=== PATIENT | male | born 1945 | race Caucasian/White ===

== ENCOUNTER 2017-05-06 07:29 | Emergency (ER) | payer MEDICARE, BC ==
[~2017-05-06] VITALS: Ht 167.6 cm; Wt 111.1 kg
[~2017-05-06 07:29] MED LIST: ALBU90OI INH; ASPI81EC PO; DIPATR PO; FISH1000 PO; FURO40 PO; HYDMOR2 PO; INSULANI SC; INSULANPEN SC; LISI20 PO; METF500 PO; POTCHL20ER PO; PROCODE120 PO; PROM25 PO; SIMV40 PO; SITA100T2 PO; TAMS.4ER PO; VERA120ERB PO
[2017-05-06] MEDS ORDERED: Hydrochlorothia25 MG PO (07:53)
[2017-05-06] MEDS ORDERED: Novolog100 UNIT/1 (07:54)
[2017-05-06 08:50] LABS: Source, Urine Clean Catch
[2017-05-06 09:01] LABS: BASOPHILS ABSOLUTE AUTO 0.01 K/mm3 (0.00-0.23); BASOPHILS PERCENT AUTO 0 % (0-2); EOSINOPHILS ABSOLUTE AUTO 0.17 K/mm3 (0.00-0.68); EOSINOPHILS PERCENT AUTO 3 % (0-6); Hematocrit 38.5 % (37.0-53.0); IMMATURE GRAN ABSOLUTE AUTO 0.01 K/mm3 (0.00-0.10); IMMATURE GRAN PERCENT AUTO 0 % (0-1); LYMPHOCYTES ABSOLUTE AUTO 1.26 K/mm3 (0.84-5.20); LYMPHOCYTES PERCENT AUTO 24 % (21-46); MONOCYTES ABSOLUTE AUTO 0.57 K/mm3 (0.16-1.47); MONOCYTES PERCENT AUTO 11 % (4-13); Mean Corpuscular HGB 29.6 pg (26.0-34.0); Mean Corpuscular HGB Conc 33.8 g/dL (31.5-36.5); Mean Corpuscular Volume 88 fL (80-100); Mean Platelet Volume 9.1 fL (9.1-12.4); NEUTROPHILS ABSOLUTE AUTO 3.35 K/mm3 (1.96-9.15); NEUTROPHILS PERCENT AUTO 62 % (41-73); Platelet Count 126 K/mm3 (150-400); RDW Coefficient Variation 13.4 % (11.7-14.2); RDW Standard Deviation 43.7 fL (35.1-46.3); Red Blood Cell Count 4.39 M/mm3 (4.30-5.90); White Blood Cell Count 5.37 K/mm3 (4.00-11.30)
[2017-05-06 09:15] LABS: Bun/Creatinine Ratio 12.1 (12.0-20.0); Calcium, Blood 8.9 mg/dL (8.5-10.1); Creatinine, Blood 1.4 mg/dL (0.60-1.20); Potassium, Blood 3.4 mmol/L (3.5-5.5)
[2017-05-06 09:22] LABS: Bilirubin, Urine Neg (Neg); Blood, Urine 2+ (Neg); Glucose Qualitative, Urine Neg (Neg); Ketones, Urine Neg (Neg); Leukocyte Esterase, Urine Neg (Neg); Nitrite, Urine Neg (Neg); Protein, Urine 3+ (Neg); Urobilinogen, Urine NORM (Normal)
[2017-05-06 09:25] LABS: Appearance, Urine Clear (Clear); Color, Urine Yellow (P-Yellow)
[2017-05-06 09:26] LABS: Bacteria Not Seen /hpf; Red Blood Cells, Urine Not Seen /hpf (0-2); Squamous Epithelial Cells Not Seen /hpf (Few); White Blood Cells, Urine Not Seen /hpf (0-5)
[2017-05-06] MEDS ORDERED: Roxicodone5 MG PO (10:53)
[2017-05-07] MEDS ORDERED: Vitamin C100 M1 PO (12:07)
== END 2017-05-06 11:50 | disposition home or self-care (01) ==
LOC: ER 07:29
PROVIDERS: Emergency Medicine
DX: N13.2 Hydronephrosis with renal and ureteral calculous obstruction (principal); I10 Essential (primary) hypertension; E11.9 Type 2 diabetes mellitus without complications; Z87.891 Personal history of nicotine dependence; Z90.49 Acquired absence of other specified parts of digestive tract; Z88.5 Allergy status to narcotic agent; Z88.1 Allergy status to other antibiotic agents; Z79.899 Other long term (current) drug therapy; Z79.82 Long term (current) use of aspirin; Z79.84 Long term (current) use of oral hypoglycemic drugs; Z79.4 Long term (current) use of insulin
CPT/HCPCS: 36415; 74176; 80048; 81001; 85025; 93005; 93010; 96374; 96375; 99284; J1170; J1885; J2405; J7030

== ENCOUNTER 2017-05-07 11:18 | Day surgery (SDC) | payer MEDICARE, BC ==
[~2017-05-07] VITALS: Ht 167.6 cm; Wt 111.2 kg
[~2017-05-07 11:18] MED LIST changes: +Hydrochlorothia25 MG PO; +Novolog100 UNIT/1; +Roxicodone5 MG PO
[2017-05-07] MEDS ORDERED: Vitamin C100 M1 PO (12:07)
== END 2017-05-07 14:12 | disposition home or self-care (01) ==
LOC: ORSCSDS 11:18
PROVIDERS: Urology
PROC: 0TF78ZZ Fragmentation in Left Ureter, Via Natural or Artificial Opening Endoscopic (ICD-10-PCS; principal; 2017-05-07 13:00)
PROC: 0T778DZ Dilation of Left Ureter with Intraluminal Device, Via Natural or Artificial Opening Endoscopic (ICD-10-PCS; principal; 2017-05-07 13:00)
DX: N20.1 Calculus of ureter (principal); I10 Essential (primary) hypertension; G47.33 Obstructive sleep apnea (adult) (pediatric); Z87.891 Personal history of nicotine dependence; E11.9 Type 2 diabetes mellitus without complications; E66.01 Morbid (severe) obesity due to excess calories; Z68.41 Body mass index [BMI] 40.0-44.9, adult; Z79.899 Other long term (current) drug therapy; Z79.4 Long term (current) use of insulin
CPT/HCPCS: 82360; 82947; C1769; C1894; C2617; J0744; J1100; J2405; J2710; J3010; J7120

== ENCOUNTER → 2017-11-02 | Outpatient (CLI) | payer MEDICARE, BC ==
[~2017-11-02] MED LIST changes: +Vitamin C100 M1 PO
== END | disposition home or self-care (01) ==
LOC: PLD 14:21 → LAB SHORT 14:21
DX: D04.61 Carcinoma in situ of skin of right upper limb, including shoulder (principal)
CPT/HCPCS: 88305

== ENCOUNTER 2019-01-31 22:42 | Emergency (ER) | payer OTHER, BC ==
[~2019-01-31] VITALS: Ht 167.6 cm; Wt 113.4 kg
[2019-01-31] MEDS ORDERED: LISI20 PO (23:49)
[2019-01-31 23:53] LABS: BASOPHILS ABSOLUTE AUTO 0.05 K/mm3 (0.00-0.23); BASOPHILS PERCENT AUTO 1 % (0-2); EOSINOPHILS PERCENT AUTO 4 % (0-6); Hematocrit 40.4 % (37.0-53.0); Hemoglobin 12.8 g/dL (13.5-17.5); IMMATURE GRAN ABSOLUTE AUTO 0.03 K/mm3 (0.00-0.10); IMMATURE GRAN PERCENT AUTO 0 % (0-1); LYMPHOCYTES ABSOLUTE AUTO 2.15 K/mm3 (0.84-5.20); LYMPHOCYTES PERCENT AUTO 25 % (21-46); MONOCYTES ABSOLUTE AUTO 0.85 K/mm3 (0.16-1.47); MONOCYTES PERCENT AUTO 10 % (4-13); Mean Corpuscular HGB 29.8 pg (26.0-34.0); Mean Corpuscular HGB Conc 31.7 g/dL (31.5-36.5); Mean Corpuscular Volume 94 fL (80-100); Mean Platelet Volume 9.4 fL (9.1-12.4); NEUTROPHILS ABSOLUTE AUTO 5.11 K/mm3 (1.96-9.15); NEUTROPHILS PERCENT AUTO 60 % (41-73); Platelet Count 204 K/mm3 (150-400); RDW Coefficient Variation 14.2 % (11.7-14.2); RDW Standard Deviation 48.9 fL (35.1-46.3); Red Blood Cell Count 4.29 M/mm3 (4.30-5.90); White Blood Cell Count 8.49 K/mm3 (4.00-11.30)
[2019-02-01 00:10] LABS: Alanine Aminotransfer (ALT/SGP 39 U/L (12-78); Albumin, Blood 3.4 g/dL (3.4-5.0); Albumin/Globulin Ratio 0.8 (0.8-1.8); Alk Phos 58 U/L (50-136); Anion Gap 7 mmol/L (6-16); Aspartate Aminotrans (AST/SGOT 28 U/L (12-37); Bilirubin, Total 0.4 mg/dL (0.1-1.0); Blood Urea Nitrogen 24 mg/dL (8-24); Bun/Creatinine Ratio 20.5 (12.0-20.0); CO2, Blood 29 mmol/L (21-32); Calcium, Blood 9.4 mg/dL (8.5-10.1); Chloride, Blood 103 mmol/L (98-108); Creatinine, Blood 1.17 mg/dL (0.60-1.20); Globulin, Blood 4.5 g/dL (2.2-4.0); Glomerular Filtration Rate >60 (60-); Glucose, Blood 99 mg/dL (70-99); Potassium, Blood 3.7 mmol/L (3.5-5.5); Sodium, Blood 139 mmol/L (136-145); Total Protein, Blood 7.9 g/dL (6.4-8.2)
== END 2019-02-01 01:46 | disposition home or self-care (01) ==
LOC: ER 22:42
PROVIDERS: Physician Assistant
DX: E11.649 Type 2 diabetes mellitus with hypoglycemia without coma (principal); Z88.0 Allergy status to penicillin; Z88.5 Allergy status to narcotic agent; Z79.899 Other long term (current) drug therapy; Z79.82 Long term (current) use of aspirin; Z79.4 Long term (current) use of insulin; I10 Essential (primary) hypertension; E11.9 Type 2 diabetes mellitus without complications; Z87.891 Personal history of nicotine dependence
CPT/HCPCS: 36415; 80053; 82947; 85025; 99283

== ENCOUNTER 2019-05-29 09:57 | Emergency (ER) | payer OTHER, BC ==
[~2019-05-29] VITALS: Ht 167.6 cm; Wt 113.4 kg
[2019-05-29] MEDS ORDERED: Percocet 5-3251 EACH PO (11:43)
[2019-05-29] MEDS ORDERED: Baclofen10 MG PO (11:43)
== END 2019-05-29 12:12 | disposition home or self-care (01) ==
LOC: ER 09:57
DX: M54.41 Lumbago with sciatica, right side (principal); M47.816 Spondylosis without myelopathy or radiculopathy, lumbar region; E11.9 Type 2 diabetes mellitus without complications; I10 Essential (primary) hypertension; E78.5 Hyperlipidemia, unspecified; Z88.0 Allergy status to penicillin; Z88.5 Allergy status to narcotic agent; Z79.899 Other long term (current) drug therapy; Z79.82 Long term (current) use of aspirin; Z79.4 Long term (current) use of insulin; Z87.442 Personal history of urinary calculi; Z87.891 Personal history of nicotine dependence
CPT/HCPCS: 72100; 96372; 99283-25; J1170

== ENCOUNTER → 2019-09-13 | Outpatient (CLI) | payer OTHER, BC ==
[~2019-09-13] MED LIST changes: +Baclofen10 MG PO; +Percocet 5-3251 EACH PO
== END | disposition home or self-care (01) ==
LOC: LAB SHORT 10:00 → LAB 10:00
DX: N20.2 Calculus of kidney with calculus of ureter (principal)
CPT/HCPCS: 81050

== ENCOUNTER → 2020-06-12 | Outpatient (CLI) | payer MEDICARE, BC | END | disposition home or self-care (01) | LOC: PLD 11:34 → LAB SHORT 11:34 | DX: C44.619 Basal cell carcinoma of skin of left upper limb, including shoulder (principal); C44.612 Basal cell carcinoma of skin of right upper limb, including shoulder; D04.4 Carcinoma in situ of skin of scalp and neck | CPT/HCPCS: 88305 ==

== ENCOUNTER → 2020-07-12 | Outpatient (CLI) | payer MEDICARE, BC | LOC: PLD 15:50 → LAB SHORT 15:50 | DX: C44.619 Basal cell carcinoma of skin of left upper limb, including shoulder (principal); Z88.1 Allergy status to other antibiotic agents; Z88.5 Allergy status to narcotic agent | CPT/HCPCS: 88305 ==

== ENCOUNTER 2020-12-30 12:44 | Emergency (ER) | payer MEDICARE, BC ==
[~2020-12-30] VITALS: Ht 167.6 cm; Wt 111.6 kg
[2020-12-30 13:37] LABS: Source, Urine Clean Catch
[2020-12-30 13:42] LABS: BASOPHILS ABSOLUTE AUTO 0.07 K/mm3 (0.00-0.23); BASOPHILS PERCENT AUTO 1 % (0-2); EOSINOPHILS ABSOLUTE AUTO 0.26 K/mm3 (0.00-0.68); EOSINOPHILS PERCENT AUTO 2 % (0-6); Hematocrit 39.5 % (37.0-53.0); Hemoglobin 12.9 g/dL (13.5-17.5); IMMATURE GRAN ABSOLUTE AUTO 0.05 K/mm3 (0.00-0.10); IMMATURE GRAN PERCENT AUTO 0 % (0-1); LYMPHOCYTES ABSOLUTE AUTO 1.39 K/mm3 (0.84-5.20); LYMPHOCYTES PERCENT AUTO 12 % (21-46); MONOCYTES ABSOLUTE AUTO 0.86 K/mm3 (0.16-1.47); MONOCYTES PERCENT AUTO 7 % (4-13); Mean Corpuscular HGB 29.9 pg (26.0-34.0); Mean Corpuscular HGB Conc 32.7 g/dL (31.5-36.5); Mean Corpuscular Volume 91 fL (80-100); Mean Platelet Volume 9.3 fL (9.1-12.4); NEUTROPHILS ABSOLUTE AUTO 9.21 K/mm3 (1.96-9.15); NEUTROPHILS PERCENT AUTO 78 % (41-73); Platelet Count 184 K/mm3 (150-400); RDW Coefficient Variation 13.4 % (11.7-14.2); RDW Standard Deviation 45.4 fL (35.1-46.3); Red Blood Cell Count 4.32 M/mm3 (4.30-5.90); White Blood Cell Count 11.84 K/mm3 (4.00-11.30)
[2020-12-30 13:57] LABS: Appearance, Urine Clear (Clear); Bilirubin, Urine Neg (Neg); Blood, Urine Neg (Neg); Color, Urine Yellow (P-Yellow); Glucose Qualitative, Urine Neg (Neg); Ketones, Urine Neg (Neg); Leukocyte Esterase, Urine Neg (Neg); Nitrite, Urine Neg (Neg); Protein, Urine 2+ (Neg); Urobilinogen, Urine NORM (Normal)
[2020-12-30 14:06] LABS: Albumin, Blood 3.7 g/dL (3.4-5.0); Albumin/Globulin Ratio 0.8 (0.8-1.8); Bilirubin, Total 0.6 mg/dL (0.1-1.0); Bun/Creatinine Ratio 14.9 (12.0-20.0); Calcium, Blood 9.8 mg/dL (8.5-10.1); Creatinine, Blood 1.61 mg/dL (0.60-1.20); Globulin, Blood 4.9 g/dL (2.2-4.0); Potassium, Blood 4.3 mmol/L (3.5-5.5); Total Protein, Blood 8.6 g/dL (6.4-8.2)
[2020-12-30 14:18] LABS: Bacteria Rare /hpf; Red Blood Cells, Urine Rare /hpf (0-2); Squamous Epithelial Cells Few /hpf (Few); White Blood Cells, Urine 0-2 /hpf (0-5)
[2020-12-30] MEDS ORDERED: OXAYDO5 M1 PO (16:05)
== END 2020-12-30 16:19 | disposition home or self-care (01) ==
LOC: ER 12:44
PROVIDERS: Emergency Medicine
DX: N13.2 Hydronephrosis with renal and ureteral calculous obstruction (principal); E11.9 Type 2 diabetes mellitus without complications; I10 Essential (primary) hypertension; Z87.891 Personal history of nicotine dependence; Z88.0 Allergy status to penicillin; Z88.5 Allergy status to narcotic agent; Z79.4 Long term (current) use of insulin; Z79.82 Long term (current) use of aspirin; Z79.899 Other long term (current) drug therapy
CPT/HCPCS: 36415; 74176; 80053; 81001; 85025; 99284-25; A9270

== ENCOUNTER 2021-04-30 12:10 | Emergency (ER) | payer MEDICARE, BC ==
[~2021-04-30] VITALS: Ht 167.6 cm; Wt 111.6 kg
[~2021-04-30 12:10] MED LIST changes: +OXAYDO5 M1 PO
[2021-04-30] MEDS ORDERED: METPRE4DP PO (16:01)
[2021-04-30] MEDS ORDERED: OXYC5 PO (16:01)
== END 2021-04-30 16:45 | disposition home or self-care (01) ==
LOC: ER 12:10
DX: M10.9 Gout, unspecified (principal); M79.671 Pain in right foot; Z88.0 Allergy status to penicillin; Z88.5 Allergy status to narcotic agent; Z79.899 Other long term (current) drug therapy; Z79.82 Long term (current) use of aspirin; Z79.84 Long term (current) use of oral hypoglycemic drugs; Z79.4 Long term (current) use of insulin; Z79.891 Long term (current) use of opiate analgesic; E11.9 Type 2 diabetes mellitus without complications; I10 Essential (primary) hypertension; E78.5 Hyperlipidemia, unspecified; Z87.891 Personal history of nicotine dependence
CPT/HCPCS: 93971; 99284-25; J7512

== ENCOUNTER 2024-01-09 10:38 | Emergency (ER) | payer OTHER ==
[~2024-01-09] VITALS: Ht 167.6 cm; Wt 117.9 kg
[~2024-01-09 10:38] MED LIST changes: +METPRE4DP PO; +OXYC5 PO
[2024-01-09 11:18] VITALS: BP 137/81
[2024-01-09] MEDS ORDERED: Gabapentin 100 MG Cap PO ONE (11:45)
[2024-01-09] MEDS ORDERED: Ketorolac Tromethamine 15mg Vial IM ONE (11:45)
[2024-01-09] MEDS ORDERED: Lidocaine 4% 1 Patch TOP ONE (11:45)
[2024-01-09] MEDS ORDERED: LIDO700A20 TOP (11:50)
[2024-01-09] MEDS ORDERED: ACET500 PO (11:50)
== END 2024-01-09 12:05 | disposition home or self-care (01) ==
LOC: ER 10:38
DX: M54.42 Lumbago with sciatica, left side (principal); Z88.0 Allergy status to penicillin; Z88.5 Allergy status to narcotic agent; Z79.899 Other long term (current) drug therapy; Z79.82 Long term (current) use of aspirin; Z79.84 Long term (current) use of oral hypoglycemic drugs; Z79.4 Long term (current) use of insulin; E11.9 Type 2 diabetes mellitus without complications; I10 Essential (primary) hypertension; E78.5 Hyperlipidemia, unspecified; Z87.891 Personal history of nicotine dependence
CPT/HCPCS: 96372; 99282-25; A9270; J1885

== ENCOUNTER 2024-01-11 05:32 | Emergency (ER) | payer OTHER ==
[~2024-01-11] VITALS: Ht 165.1 cm; Wt 117.9 kg
[~2024-01-11 05:32] MED LIST changes: +ACET500 PO; +LIDO700A20 TOP
[2024-01-11 05:47] VITALS: BP 163/85
[2024-01-11] MEDS ORDERED: PredniSONE 20 MG Tab PO ONE (06:20)
[2024-01-11] MEDS ORDERED: Ketorolac Tromethamine 30mg Vial IM ONE (06:20)
[2024-01-11] MEDS ORDERED: HYDROmorphone HCl/Pf 1MG SYR IM ONE (06:20)
[2024-01-11] MEDS ORDERED: Methocarbamol500 MG PO (06:40)
[2024-01-11] MEDS ORDERED: Norco 5-325 Ta1 EACH PO (06:40)
[2024-01-11] MEDS ORDERED: Prednisone20 MG PO (06:40)
== END 2024-01-11 05:45 | disposition home or self-care (01) ==
LOC: ER 05:32
DX: M54.42 Lumbago with sciatica, left side (principal); E11.40 Type 2 diabetes mellitus with diabetic neuropathy, unspecified; I10 Essential (primary) hypertension; E78.5 Hyperlipidemia, unspecified; Z87.891 Personal history of nicotine dependence; Z96.653 Presence of artificial knee joint, bilateral; Z87.442 Personal history of urinary calculi; Z88.0 Allergy status to penicillin; Z88.5 Allergy status to narcotic agent; Z79.82 Long term (current) use of aspirin; Z79.84 Long term (current) use of oral hypoglycemic drugs; Z79.4 Long term (current) use of insulin; Z79.52 Long term (current) use of systemic steroids
CPT/HCPCS: J1170; J1885; J7512

== ENCOUNTER 2024-02-10 19:18 | Emergency (ER) | payer OTHER ==
[~2024-02-10] VITALS: Ht 165.1 cm; Wt 113.4 kg
[~2024-02-10 19:18] MED LIST changes: +Methocarbamol500 MG PO; +Norco 5-325 Ta1 EACH PO; +Prednisone20 MG PO
[2024-02-10 20:42] LABS: BASOPHILS ABSOLUTE AUTO 0.04 K/mm3 (0.00-0.23); BASOPHILS PERCENT AUTO 0 % (0-2); EOSINOPHILS ABSOLUTE AUTO 0.62 K/mm3 (0.00-0.68); EOSINOPHILS PERCENT AUTO 6 % (0-6); Hematocrit 37.9 % (37.0-53.0); IMMATURE GRAN ABSOLUTE AUTO 0.07 K/mm3 (0.00-0.10); IMMATURE GRAN PERCENT AUTO 1 % (0-1); LYMPHOCYTES ABSOLUTE AUTO 2.24 K/mm3 (0.84-5.20); LYMPHOCYTES PERCENT AUTO 23 % (21-46); MONOCYTES ABSOLUTE AUTO 1.25 K/mm3 (0.16-1.47); MONOCYTES PERCENT AUTO 13 % (4-13); Mean Corpuscular HGB 29.9 pg (26.0-34.0); Mean Corpuscular HGB Conc 31.7 g/dL (31.5-36.5); Mean Corpuscular Volume 95 fL (80-100); Mean Platelet Volume 9.3 fL (9.1-12.4); NEUTROPHILS ABSOLUTE AUTO 5.69 K/mm3 (1.96-9.15); NEUTROPHILS PERCENT AUTO 57 % (41-73); Platelet Count 256 K/mm3 (150-400); RDW Coefficient Variation 15.7 % (11.7-14.2); RDW Standard Deviation 53.8 fL (35.1-46.3); Red Blood Cell Count 4.01 M/mm3 (4.30-5.90); White Blood Cell Count 9.91 K/mm3 (4.00-11.30)
[2024-02-10 21:11] LABS: Albumin, Blood 3.2 g/dL (3.4-5.0); Albumin/Globulin Ratio 0.7 (0.8-1.8); Bilirubin, Total 0.4 mg/dL (0.1-1.0); Bun/Creatinine Ratio 15.6 (12.0-20.0); Calcium, Blood 10.3 mg/dL (8.5-10.1); Creatinine, Blood 1.73 mg/dL (0.60-1.20); Globulin, Blood 4.3 g/dL (2.2-4.0); Potassium, Blood 3.9 mmol/L (3.5-5.5); Total Protein, Blood 7.5 g/dL (6.4-8.2)
[2024-02-11 02:15] VITALS: BP 124/77
== END 2024-02-11 02:30 | disposition home or self-care (01) ==
LOC: ER 19:18
PROVIDERS: Student in an Organized Health Care Education/Training Program
DX: Z47.89 Encounter for other orthopedic aftercare (principal); E11.42 Type 2 diabetes mellitus with diabetic polyneuropathy; I10 Essential (primary) hypertension; E78.5 Hyperlipidemia, unspecified; M19.90 Unspecified osteoarthritis, unspecified site; Z88.0 Allergy status to penicillin; Z88.5 Allergy status to narcotic agent; Z79.82 Long term (current) use of aspirin; Z79.4 Long term (current) use of insulin; Z79.84 Long term (current) use of oral hypoglycemic drugs; Z79.899 Other long term (current) drug therapy; Z59.89 Other problems related to housing and economic circumstances
CPT/HCPCS: 80053; 85025; 99282

== ENCOUNTER 2024-04-01 13:35 | Inpatient (IN) | payer OTHER ==
[~2024-04-01] VITALS: Ht 167.6 cm; Wt 108.9 kg
[~2024-04-01 13:35] MED LIST changes: +NOVOLOG100 UNIT/2; -Novolog100 UNIT/1
[2024-04-01] MEDS ORDERED: ATORVASTATIN CA20 MG PO (14:42)
[2024-04-01 14:55] LABS: BASOPHILS ABSOLUTE AUTO 0.06 K/mm3 (0.00-0.23); BASOPHILS PERCENT AUTO 1 % (0-2); EOSINOPHILS ABSOLUTE AUTO 0.49 K/mm3 (0.00-0.68); EOSINOPHILS PERCENT AUTO 6 % (0-6); Hematocrit 33.8 % (37.0-53.0); Hemoglobin 10.6 g/dL (13.5-17.5); IMMATURE GRAN ABSOLUTE AUTO 0.03 K/mm3 (0.00-0.10); IMMATURE GRAN PERCENT AUTO 0 % (0-1); LYMPHOCYTES ABSOLUTE AUTO 1.28 K/mm3 (0.84-5.20); LYMPHOCYTES PERCENT AUTO 16 % (21-46); MONOCYTES ABSOLUTE AUTO 0.83 K/mm3 (0.16-1.47); MONOCYTES PERCENT AUTO 10 % (4-13); Mean Corpuscular HGB 28.4 pg (26.0-34.0); Mean Corpuscular HGB Conc 31.4 g/dL (31.5-36.5); Mean Corpuscular Volume 91 fL (80-100); NEUTROPHILS ABSOLUTE AUTO 5.38 K/mm3 (1.96-9.15); NEUTROPHILS PERCENT AUTO 67 % (41-73); Platelet Count 253 K/mm3 (150-400); RDW Coefficient Variation 15.4 % (11.7-14.2); Red Blood Cell Count 3.73 M/mm3 (4.30-5.90); White Blood Cell Count 8.07 K/mm3 (4.00-11.30)
[2024-04-01 15:17] LABS: Albumin, Blood 2.7 g/dL (3.4-5.0); Albumin/Globulin Ratio 0.5 (0.8-1.8); Bilirubin, Total 0.6 mg/dL (0.1-1.0); Bun/Creatinine Ratio 15.9 (12.0-20.0); Calcium, Blood 9.7 mg/dL (8.5-10.1); Creatinine, Blood 1.26 mg/dL (0.60-1.20); Globulin, Blood 5.1 g/dL (2.2-4.0); Potassium, Blood 3.4 mmol/L (3.5-5.5); Total Protein, Blood 7.8 g/dL (6.4-8.2)
[2024-04-01 16:58] LABS: Influenza A, PCR NEGATIVE (NEGATIVE); Influenza B, PCR NEGATIVE (NEGATIVE); Resp Syncytial Virus, PCR NEGATIVE (NEGATIVE); SARS-Cov-2 (COVID-19) PCR, MMC NEGATIVE (NEGATIVE)
[2024-04-01] MEDS ORDERED: Enoxaparin 120 MG/0.8 ML SYR SC ONE (17:30)
[2024-04-01] MEDS ORDERED: FLU VACC TS2024-25(6MOS UP)/PF 45 MCG/0.5 ML SYRINGE IM SCH (18:30)
[2024-04-01] MEDS ORDERED: Ondansetron HCl 2 MG / ML 2ML Vial IV PRN (18:30)
[2024-04-01] MEDS ORDERED: HYDROcodone 5-APAP 325 TAB PO PRN (18:35)
[2024-04-01] MEDS ORDERED: Azithromycin 500 MG in NS 250 ML IV SCH (19:00)
[2024-04-01] MEDS ORDERED: CefTRIAXone Sodium 1,000 MG in NS 100 ML IV SCH (19:00)
[2024-04-01] MEDS ORDERED: Potassium Chloride 20 MEQ TabCR PO ONE (19:00)
[2024-04-01 20:38] VITALS: BP 139/83
[2024-04-01] MEDS ORDERED: Lactobacil 2-S.Thermo-Bifido 1 1 Cap PO SCH (21:00)
[2024-04-01] MEDS ORDERED: Methocarbamol 500 MG Tab PO SCH (21:00)
[2024-04-01] MEDS ORDERED: Insulin Glargine-Yfgn 100 Unit/mL 3 ML SYR SC SCH (21:00)
[2024-04-01] MEDS ORDERED: OxyCODONE HCL 5 MG TAB PO PRN (21:20)
[2024-04-01] MEDS ORDERED: GABA400 PO (22:01)
[2024-04-01] MEDS ORDERED: ROPI1 PO (22:03)
[2024-04-01] MEDS ORDERED: SITA50T2 PO (22:04)
[2024-04-01] MEDS ORDERED: MOUNJARO2.5 MG/0.5 SC (22:05)
[2024-04-01] MEDS ORDERED: Aspir 8181 MG PO (22:06)
[2024-04-01] MEDS ORDERED: TRAM50 PO (22:06)
[2024-04-01] MEDS ORDERED: LEVSOD75 PO (22:07)
[2024-04-01] MEDS ORDERED: Robaxin750 MG PO (22:09)
[2024-04-01] MEDS ORDERED: Voltaren100 GM TOP (22:11)
--- NOTE | 2024-04-01 23:22 | NUR ---
ASSUMPTION OF CARE/TRANSFER NOTE THIS RN RECEIVED REPORT FROM SUKH BOOTH IN THE ED. PT TRANSFERRED TO PCU 3. PT ON 4L VIA NC TO MAINTAIN SPO2. PT A&O X4. TACHYPNEA AND DYSPNEA WITH EXERTION NOTED. PT STATES HE DOES HAVE DYSPNEA AT BASELINE D/T ASBESTOS EXPOSURE BUT SOB HAS BEEN INCREASING FOR ABOUT A WEEK. SR WITH 1ST DEGREE HB ON TELE, HR 70-80'S. DENIES CHEST PAIN/PRESSURE. BP STABLE. AFEBRILE. RR INCREASE AT 22-26. CONTINUOUS SPO2 MONITORING. USING URINAL WITH ASSISTANCE IN BED. PT REPORTS BEING MOSTLY CHAIRFAST IN RECLINER AT HOME BUT OCCASIONALLY USES WALKER TO WALK TO THE BATHROOM OR USES BEDSIDE COMMODE. STAGE 1 PRESSURE ULCERS ON BILATERAL BUTTOCK. STATES THAT THEY WERE OPEN BUT HAVE IMPROVED. MD NOTIFIED. PHOTO IN CHART. BARRIER CREAM AND MEPILEX IN PLACE. BED IN LOWEST POSITION AND CALL LIGHT WITHIN REACH.
[2024-04-02 00:05] VITALS: BP 133/82
[2024-04-02 03:44] VITALS: BP 131/73
--- NOTE | 2024-04-02 04:19 | NUR ---
SHIFT SUMMARY SEE PREVIOUS NOTE NO ACUTE CHANGES OVERNIGHT. TITRATING O2 PRN, NEEDING 2-4L VIA NC. NEURO UNCHANGED. AT BEDSIDE. VSS. CPAP FOR SLEEP. MEPILEX ON COCCYX. BED IN LOWEST POSITION AND CALL LIGHT WITHIN REACH. THIS RN WILL REPORT TO ONCOMING DAYSHIFT RN.
[2024-04-02 04:23] LABS: BASOPHILS ABSOLUTE AUTO 0.04 K/mm3 (0.00-0.23); BASOPHILS PERCENT AUTO 1 % (0-2); EOSINOPHILS ABSOLUTE AUTO 0.56 K/mm3 (0.00-0.68); EOSINOPHILS PERCENT AUTO 8 % (0-6); Hematocrit 32.5 % (37.0-53.0); IMMATURE GRAN ABSOLUTE AUTO 0.03 K/mm3 (0.00-0.10); IMMATURE GRAN PERCENT AUTO 0 % (0-1); LYMPHOCYTES ABSOLUTE AUTO 1.63 K/mm3 (0.84-5.20); LYMPHOCYTES PERCENT AUTO 23 % (21-46); MONOCYTES ABSOLUTE AUTO 0.83 K/mm3 (0.16-1.47); MONOCYTES PERCENT AUTO 12 % (4-13); Mean Corpuscular HGB 27.6 pg (26.0-34.0); Mean Corpuscular HGB Conc 30.8 g/dL (31.5-36.5); Mean Corpuscular Volume 90 fL (80-100); Mean Platelet Volume 9.3 fL (9.1-12.4); NEUTROPHILS ABSOLUTE AUTO 3.91 K/mm3 (1.96-9.15); NEUTROPHILS PERCENT AUTO 56 % (41-73); Platelet Count 260 K/mm3 (150-400); RDW Coefficient Variation 15.3 % (11.7-14.2); RDW Standard Deviation 50.3 fL (35.1-46.3); Red Blood Cell Count 3.62 M/mm3 (4.30-5.90)
[2024-04-02 04:40] LABS: Bun/Creatinine Ratio 14.7 (12.0-20.0); Calcium, Blood 9.5 mg/dL (8.5-10.1); Creatinine, Blood 1.16 mg/dL (0.60-1.20); Magnesium, Blood 1.8 mg/dL (1.6-2.4); Potassium, Blood 3.8 mmol/L (3.5-5.5)
[2024-04-02] MEDS ORDERED: Enoxaparin 120 MG/0.8 ML SYR SC SCH (07:00)
[2024-04-02] MEDS ORDERED: Insulin Human Lispro 100 Units/ML 3ML Syringe SC SCH (07:30)
[2024-04-02 07:49] VITALS: BP 117/76
[2024-04-02] MEDS ORDERED: Aspirin 81 MG TabEC PO SCH (09:00)
[2024-04-02] MEDS ORDERED: Atorvastatin 10 MG Tab PO SCH (09:00)
[2024-04-02] MEDS ORDERED: Lisinopril 20 MG Tab PO SCH (09:00)
[2024-04-02 11:58] VITALS: BP 135/71
--- NOTE | 2024-04-02 15:33 | NUR ---
REPORT CALLED TO [facility]. PT TRANSFERED TO 341.
[2024-04-02] MEDS ORDERED: NS 250 ML IV PRN (17:00)
[2024-04-02] MEDS ORDERED: Apixaban 5 MG Tab PO SCH (18:00)
--- NOTE | 2024-04-02 18:11 | NUR ---
SHIFT SUMMARY PT TRANSFERED FROM PCU 3 THIS SHIFT TO ROOM 341. PT NOTED TO BE A&O X4 AND HAS DENIED WANTED TO GET OUT OF BED. PT NOTED TO BE AT BEDSIDE. PT CALLS APPROPRIATE WHEN NEEDING ASSISTANCE. PT NOTED TO BE ON CONT PULSE OX REQUIRING 3L/NC TO MAINTAIN O2 IN THE LOW 90'S. PT STATES HE USES HIS HOME CPAP AT [facility].
[2024-04-02 19:23] VITALS: BP 131/82
[2024-04-03 02:30] VITALS: BP 122/75
--- NOTE | 2024-04-03 03:50 | NUR ---
A&Ox4, vss, denied pain this shift, slept t/o the night waking easily for cares, sleeping at this time w/call light in reach, will cont to monitor until report given to oncoming nurse.
[2024-04-03 07:49] VITALS: BP 142/87
[2024-04-03] MEDS ORDERED: Doxycycline Hyclate 100 MG TAB PO SCH (09:00)
[2024-04-03 15:46] VITALS: BP 160/80
--- NOTE | 2024-04-03 18:40 | NUR ---
SHIFT SUMMARY PT CONT LEVEL OF CARE WITH NO ACUTE CHANGES NOTED. PT ENCOURAGED TO GET UP AND MOVE AROUND PER PHYSICAN. PT NOTED TO GET UP FOR LUNCH AND SIT IN CHAIR FOR A COUPLE HOURS. PT DID UTILIZE ASSIST X2 WITH FWW D/T WEAKNESS AND UNSTEADY GAIT. PT TITRATED DOWN TO 2L/NC THIS SHIFT WITH SPO2 NOTED IN LOW 90S. PT IS TO HAVE A HOME O2 EVAL DONE ON THURSDAY.
[2024-04-03 19:20] VITALS: BP 135/83
[2024-04-04 04:13] VITALS: BP 116/74
[2024-04-04 07:31] VITALS: BP 126/73
--- NOTE | 2024-04-04 07:37 | NUR ---
AAO X4, USES CALL LIGHT APPROPRIATELY, IN ROOM OVERNIGHT. PT DID NOT GET OUT OF BED THIS SHFIT, USES URINAL IN BED. THIS AM BG 72 HOME GLUCOMETER AND 70 FOR HOSPITAL GLUCOMETER. GAVE SNACK AND BG UP TO 90 PER PT'S GLUCOMETER, HE REQUESTED MORE OJ AND AT SHIFT CHANGE 101 BG. CPAP WORN THROUGHOUT THE NIGHT, PRN PAIN MEDICATION X1 FOR ANKLE PAIN.
[2024-04-04] MEDS ORDERED: LISI20 PO (15:58)
[2024-04-04] MEDS ORDERED: ELIQUIS5 M2 PO (15:58)
[2024-04-04] MEDS ORDERED: DOXY100 PO (15:58)
--- NOTE | 2024-04-04 17:29 | NUR ---
DISCHARGE SUMMARY PT DC THIS SHIFT DC INSTRUCTION GIVEN BY ALTA BOOTH. PT WAS ESCORTED OUT VIA WHEELCHAIR TO PRIVATE VEHICLE ACCOMPANIED BY AND EMBER BOOTH. PT REQUESTED HIS MEDICATION BE SENT TO [facility] AND STATED THAT HE WAS NOT GOING TO PICK THEM UP UNTIL TOMORROW SO PT WAS GIVEN HIS PM ELIQUIS DOSE PRIOR TO DC.
[2024-04-08] MEDS ORDERED: Apixaban 5 MG Tab PO SCH (18:00)
== END 2024-04-04 17:19 | disposition home health service (06) | DRG 175 ==
LOC: ER 13:35 → MEDS 18:26 → ERHOLD 18:26 → PCU 20:40 → MEDS 04-02 15:54
PROVIDERS: Emergency Medicine; Nurse Practitioner Acute Care; ADMIT Internal Medicine
DX: I26.09 Other pulmonary embolism with acute cor pulmonale (principal); J18.9 Pneumonia, unspecified organism; J96.01 Acute respiratory failure with hypoxia; I82.412 Acute embolism and thrombosis of left femoral vein; G47.33 Obstructive sleep apnea (adult) (pediatric); E11.22 Type 2 diabetes mellitus with diabetic chronic kidney disease; N18.30 Chronic kidney disease, stage 3 unspecified; M54.9 Dorsalgia, unspecified; G89.29 Other chronic pain; E86.0 Dehydration; E87.6 Hypokalemia; E66.01 Morbid (severe) obesity due to excess calories; I12.9 Hypertensive chronic kidney disease with stage 1 through stage 4 chronic kidney disease, or unspecified chronic kidney disease; E11.40 Type 2 diabetes mellitus with diabetic neuropathy, unspecified; E78.5 Hyperlipidemia, unspecified; Z88.1 Allergy status to other antibiotic agents; Z88.5 Allergy status to narcotic agent; Z87.442 Personal history of urinary calculi; M19.90 Unspecified osteoarthritis, unspecified site; Z96.653 Presence of artificial knee joint, bilateral; Z90.49 Acquired absence of other specified parts of digestive tract; Z98.890 Other specified postprocedural states; Z68.38 Body mass index [BMI] 38.0-38.9, adult
CPT/HCPCS: 0241U; 36415; 71046; 71260; 80048; 80053; 82947; 83735; 83880; 84145; 84484; 85025; 93005; 93010; 93306; 93970; 94660; 94762; 97110; 97162; 97530; 99285-25; A9270; J0456; J0696; J1650; J1815; J7050; Q9967